=== PATIENT | female | born 1995 | race Caucasian/White ===

== ENCOUNTER 2020-10-10 12:44 | Emergency (ER) | payer MEDICAID, OTHER ==
[~2020-10-10] VITALS: Ht 167.6 cm; Wt 80.0 kg
[2020-10-10] MEDS ORDERED: ACETAMINOPHEN 325MG TABLET PO ONE (13:00)
[2020-10-10] MEDS ORDERED: ALBUTEROL (0.083%) 2.5MG/3ML NEB HHN ONE (13:30)
[2020-10-10] MEDS ORDERED: ACET-2708 MT (14:30)
[2020-10-10 14:40] VITALS: BP 118/68
== END 2020-10-10 14:42 | disposition home or self-care (01) ==
LOC: ER 14:08
DX: R05 Cough (principal); R06.02 Shortness of breath; Z20.822 Contact with and (suspected) exposure to COVID-19; M79.18 Myalgia, other site; Z71.89 Other specified counseling; J45.909 Unspecified asthma, uncomplicated
CPT/HCPCS: 71045; 81025; 94640; 99284; C9803; U0003; U0005; Z7610

== ENCOUNTER 2021-06-08 22:45 | Emergency (ER) | payer MEDICAID ==
[~2021-06-08] VITALS: Ht 167.6 cm; Wt 87.0 kg
[2021-06-08] MEDS: LORAZEPAM 2MG/ML CPJ IV ONE (00:20)
[2021-06-08] MEDS: SODIUM CHLORIDE 0.9% 1,000 ML IV ONE (00:20)
[~2021-06-08 22:45] MED LIST: ACET-2708 MT
[2021-06-09 00:02] LABS: BASOPHILS % 0.4 % (0.0-2.0); EOSINOPHILS % 1.9 % (0.0-5.0); HEMATOCRIT. 50.1 % (36.0-48.0); HEMOGLOBIN. 17.1 g/dL (12.0-16.0); MEAN CORPUSCULAR HEMOGLOBIN 30.4 pg (28.0-32.0); MEAN CORPUSCULAR VOLUME 88.9 fL (81.0-99.0); MEAN PLATELET VOLUME 8.3 fl (7.4-10.4); MONOCYTES % 6.5 % (2.0-8.0); NEUTROPHILS % 70.2 % (40.0-76.0); PLATELET 376 x1000/uL (130-400); RED BLOOD CELL COUNT 5.64 mill/uL (4.2-5.4); RED CELL DISTRIBUTION WIDTH 13.4 % (11.6-14.6)
[2021-06-09 00:06] LABS: CHLORIDE 103 mEq/L (98-107)
[2021-06-09 00:08] LABS: HCG SCREEN NEGATIVE
[2021-06-09 00:09] LABS: ETHANOL BLOOD 37 mg/dL
[2021-06-09 02:00] VITALS: BP 114/61
== END 2021-06-09 03:40 | disposition home or self-care (01) ==
LOC: ER 22:45
DX: F41.0 Panic disorder [episodic paroxysmal anxiety] (principal); F41.9 Anxiety disorder, unspecified; R00.0 Tachycardia, unspecified; I10 Essential (primary) hypertension; F32.9 Major depressive disorder, single episode, unspecified; F12.10 Cannabis abuse, uncomplicated
CPT/HCPCS: 36415; 71045; 80053; 80320; 83690; 83880; 84484; 84703; 85025; 85379; 93005; 96360; 99285; J7030; G0480